=== PATIENT | female | born 1955 | race Caucasian/White ===

== ENCOUNTER 2017-08-23 16:08 | Emergency (ER) | payer MEDICAID | END 2017-08-23 18:22 | disposition home or self-care (01) | LOC: D.ER 16:08 | DX: S62.102A Fracture of unspecified carpal bone, left wrist, initial encounter for closed fracture (principal); W10.9XXA Fall (on) (from) unspecified stairs and steps, initial encounter; Y93.89 Activity, other specified; Y92.019 Unspecified place in single-family (private) house as the place of occurrence of the external cause; S39.012A Strain of muscle, fascia and tendon of lower back, initial encounter ==

== ENCOUNTER 2017-09-05 09:52 | Day surgery (SDC) | payer MEDICAID ==
[~2017-09-05] VITALS: Ht 157.5 cm; Wt 63.6 kg
--- NOTE | ~2017-09-05 | OP ---
PATIENT NAME: CHELO HAIR MEDICAL RECORD: [id number] LOCATION:D.OPS ADMISSION DATE: SURGEON: AGUILAR ROJAS MD DATE OF OPERATION: 09/05/2017 PREOPERATIVE DIAGNOSES: Displaced distal radius fracture of the left wrist and early carpal tunnel syndrome. POSTOPERATIVE DIAGNOSES: Displaced distal radius fracture of the left wrist and early carpal tunnel syndrome. PROCEDURES: 1. Open reduction internal fixation of distal radius fracture. 2. Carpal tunnel release. SURGEON: Aguilar Rojas MD ANESTHESIA: General. INTRAOPERATIVE COMPLICATIONS: None. SUMMARY OF PATHOLOGIC FINDINGS: The patient had loss of radial tilt to a negative angle with dorsal comminution obviating the need for operative intervention. OPERATIVE SUMMARY IN DETAIL: After obtaining the appropriate preoperative orthopedic surgery consent as well as anesthetic consultation, evaluation, and clearance, the patient was brought to the operating room and placed on the operating table in supine position. After general laryngeal mask was administered, tourniquet was placed about the proximal aspect of the left upper extremity. Left upper extremity was then prepped and draped in routine sterile fashion. The arm was elevated, exsanguinated and tourniquet was inflated to 350 mmHg. Reduction maneuver was performed and checked on x-ray and correcting to almost neutral. Volar approach of Dario was used to approach the wrist into the palmar aspect, first the transverse carpal ligament was released in its entirety and under direct visualization of the median nerve. It was very tight and filled with hematoma and then the flexor carpi radialis was identified and dissection was carried down to the fracture itself and then exposed. At this point, under fluoroscopy, the [place] VariAx distal radius plate was placed and using the olive pins in the most appropriate position and then serial and sequential drill and fill technique was utilized to correct the patient's volar tilt and the plate distally and then the plate was used as a lever mechanism by putting a compression screw more proximally. After all screw holes were filled and reduction was seen to be appropriate, final radiographs were taken and submitted for radiologist review. The wound was copiously irrigated and closed with 2-0 Vicryl, followed by 4-0 Prolene in running fashion. Sterile dressings were applied. Tourniquet was deflated. The patient was awakened, taken to the recovery in stable condition. All final needle and sponge counts were correct. TRANSINT:[id number] Voice Confirmation ID: [id number] DOCUMENT ID: [id number] OPERATIVE REPORT [id number] CHELO HAIR MD, AGUILAR BISHOP at 0827 CC: [id number] DICTATION DATE: 09/05/171815 CUSTOMER EXPERIENCE CONSULTANT: 09/05/172056 [facility] [place] 09/05/17 [place] [id number] [place] [id number]
[2017-09-05] MEDS ORDERED: PROAIR HFA8.5 GM PF (11:14)
[2017-09-05] MEDS ORDERED: NORCO 7.5/325 T1 TA1 PO (11:15)
[2017-09-05] MEDS ORDERED: LISINOPRIL TAB 10M (11:16)
[2017-09-05] MEDS ORDERED: SYNTHROID50 MCG PO (11:17)
[2017-09-05] MEDS ORDERED: ELESTRIN144 GM TOPICAL (11:22)
[2017-09-05 11:34] LABS: BASOPHILS 0.9 % (0-2); HEMATOCRIT 39.6 % (36.0-48.0); IMMATURE GRANULOCYTES 0.2 % (0-5); MCH 29.5 pg (26.0-34.0); MCHC 32.8 g/dL (31.0-37.0); MEAN PLATELET VOLUME 9.3 fL (7.4-10.4); MONOCYTES 10.5 % (2-11); NEUTROPHILS 42.4 % (40-80); PLATELET COUNT 297 10x3/uL (130-400); RDW 13.4 % (11.5-14.5); WBC 4.7 10x3/uL (4.8-10.8)
[2017-09-05 11:42] VITALS: Ht 157.5 cm; Wt 63.6 kg
[2017-09-05 11:43] LABS: CALC OSMOLALITY 275 mosm/kg (275-300); CARBON DIOXIDE 30.8 mmol/L (21.0-32.0); CHLORIDE - SERUM 101 mmol/L (98-107); CREATININE - SERUM 0.8 mg/dL (0.6-1.3); GLUCOSE 100 mg/dL (74-106); POTASSIUM - SERUM 4.1 mmol/L (3.5-5.1); SODIUM 139 mmol/L (136-145); UREA NITROGEN 8 mg/dL (7-18); eGFR NON AFRICAN AMERICAN 77 mL/min (90-120)
[2017-09-05] MEDS ORDERED: HYDROCODONE-APA1 TAB PO (15:36)
== END 2017-09-05 18:05 | disposition home or self-care (01) ==
LOC: D.OPS 09:52
PROVIDERS: Anesthesiology
DX: S52.502A Unspecified fracture of the lower end of left radius, initial encounter for closed fracture (principal); G56.02 Carpal tunnel syndrome, left upper limb; Z01.812 Encounter for preprocedural laboratory examination

== ENCOUNTER → 2018-05-27 14:12 | Outpatient (CLI) | payer MEDICAID ==
[2017-09-05 11:42] VITALS: BMI 25.6
[~2018-05-27 14:12] MED LIST: ELESTRIN144 GM TOPICAL; HYDROCODONE-APA1 TAB PO; LISINOPRIL TAB 10M; NORCO 7.5/325 T1 TA1 PO; PROAIR HFA8.5 GM PF; SYNTHROID50 MCG PO
== END | disposition home or self-care (01) ==
LOC: D.RAD 14:12
DX: M25.572 Pain in left ankle and joints of left foot (principal)

== ENCOUNTER → 2019-03-26 12:03 | Outpatient (CLI) | payer MEDICAID ==
[2017-09-05 11:42] VITALS: BMI 25.6
== END | disposition home or self-care (01) ==
LOC: D.RAD 12:03
PROVIDERS: ATTEND Nurse Practitioner Family
DX: R05 Cough (principal)

== ENCOUNTER → 2020-12-10 10:45 | Outpatient (CLI) | payer BC ==
[2017-09-05 11:42] VITALS: BMI 25.6
== END | disposition home or self-care (01) ==
LOC: D.LAB 10:45
PROVIDERS: ATTEND Internal Medicine Pulmonary Disease
DX: Z11.52 Encounter for screening for COVID-19 (principal)

== ENCOUNTER → 2020-12-16 08:02 | Outpatient (CLI) | payer BC ==
[2017-09-05 11:42] VITALS: BMI 25.6
[2020-12-17 07:15] LABS: IMMUNOGLOBULIN A 188 mg/dL (87-352)
[2020-12-18 06:11] LABS: IGG SUBCLASS 1 568 mg/dL (248-810); IGG SUBCLASS 2 368 mg/dL (130-555); IGG SUBCLASS 3 70 mg/dL (15-102); IGG SUBCLASS 4 56 mg/dL (2-96); IGGS - IGG SERUM 1124 mg/dL (586-1602)
[2020-12-20 09:08] LABS: IMMUNOGLOBULIN E 6 IU/mL (6-495)
== END | disposition home or self-care (01) ==
LOC: D.RT 08:00
PROVIDERS: ATTEND Internal Medicine Pulmonary Disease
DX: J44.9 Chronic obstructive pulmonary disease, unspecified (principal); J42 Unspecified chronic bronchitis; Z11.52 Encounter for screening for COVID-19